=== PATIENT | female | born 1980 ===

== ENCOUNTER 2020-01-14 17:03 | Emergency (ER) | payer OTHER ==
[~2020-01-14] VITALS: Ht 170.2 cm; Wt 81.7 kg
[2020-01-14] MEDS ORDERED: ESCI10 PO (17:44)
[2020-01-14] MEDS ORDERED: ALPR.5 PO (17:44)
[2020-01-14] MEDS ORDERED: Ativan1 MG SL (18:20)
[2020-01-14] MEDS ORDERED: Lexapro 2020 MG PO (18:20)
== END 2020-01-14 18:35 | disposition home or self-care (01) ==
LOC: ER 17:03
DX: F41.0 Panic disorder [episodic paroxysmal anxiety] (principal); R06.00 Dyspnea, unspecified
CPT/HCPCS: 99283